=== PATIENT | male | born 1945 | race African-American/Black ===

== ENCOUNTER → 2016-07-24 | Outpatient (CLI) | payer MEDICARE, BC ==
[2014-04-03 11:00] VITALS: BP 148/88
[~2016-07-24] MED LIST: AMLO1CAP12 PO; AMOX1TAB58 PO; ASPI-482 PO; BIMA2.5D OP; DOCU100T11 PO; FLUT16SP2 NS; FLUV80TA PO; GLIP10TA13 PO; HYDR-923 PO; IBUP-1007 PO; IOHEXOL 300 MG/ML 100ML VIAL. IV ONE; METF10002 PO; OMEP40CA5 PO; PREG50CA PO; SILD100T PO; SILO8CAP PO; TRAM50TA PO; [UNRECOGNIZED DRUG - CODE] PO
--- NOTE | 2016-07-24 11:09 | KCIC ---
PQRS STATEMENT One or more of the following individualized dose reduction techniques were utilized for this study: 1.Automated exposure control 2.Adjustment of the mA and/or kV according to patient size 3.Use of iterative reconstruction technique CT NECK WITH CONTRAST HISTORY:Reason For Study Reason: NODULAR SCLEROSIS HODGKINS LYMPHOMA / Spl. Instructions: 95cc Omni 300 / History: TECHNIQUE: 2.5 mm contiguous axial images were obtained from the region of the paranasal sinuses through the thoracic inlet after the administration of iodinated intravenous contrast material. Additional sagittal and coronal reconstructions were performed. FINDINGS: Visualized brain parenchyma is within normal limits and no regions of abnormal parenchymal enhancement are seen. Visualized paranasal sinuses and mastoid air cells are clear. The nasopharynx, oropharynx, and base of tongue are unremarkable. The oral cavity is somewhat obscured by dental streak artifact. The visualized salivary glands are unremarkable. Specifically, no parotid lesions are seen. Rod Buster Helper spaces are within normal limits. The parapharyngeal fat is preserved. There is no abnormality identified within the retropharyngeal or paravertebral soft tissues. Glottic and subglottic structures are within normal limits. The airway is patent throughout. The thyroid gland has a normal anatomic configuration. Visualized vascular structures are unremarkable. There is no cervical adenopathy. Normal appearing cervical lymph nodes are seen. No drainable fluid collections are seen. No inflammatory changes of the soft tissues are identified. No bony lesions are seen. There is multilevel cervical spondylosis. Visualized lung apices are clear. IMPRESSION: - Negative for cervical adenopathy. Soft tissue neck exam is within normal limits apart from degenerative changes of the cervical spine. Electronically signed by: Leandro Patel (Jul 24, 2016 11:08:55)
== END | disposition home or self-care (01) ==
LOC: KCIC CT 10:07
DX: C81.11 Nodular sclerosis Hodgkin lymphoma, lymph nodes of head, face, and neck (principal); M47.892 Other spondylosis, cervical region
CPT/HCPCS: 70491; Q9967

== ENCOUNTER → 2017-01-27 | Outpatient (CLI) | payer MEDICARE, BC ==
[2014-04-03 11:00] VITALS: BP 148/88
[~2017-01-27] MED LIST changes: -IOHEXOL 300 MG/ML 100ML VIAL. IV ONE; +METF-620 PO; -METF10002 PO
--- NOTE | 2017-01-27 16:27 | RAD ---
Exam performed: One view pelvis and 2 views right hip. Clinical Indication: Patient slipped 2 weeks ago, complaint of back pain and right hip pain Date of Service:01/27/17 Comparison:None available Findings: AP radiograph of the pelvis to include the proximal portion of each femur reveals the osseous structures to be intact and well aligned. The joint spaces are well-preserved. Evidence of fracture or dislocation is not seen. Impression: Negative exam
== END | disposition home or self-care (01) ==
LOC: RAD 14:35
PROVIDERS: ATTEND Internal Medicine
DX: M25.551 Pain in right hip (principal)
CPT/HCPCS: 73502

== ENCOUNTER → 2017-07-05 | Outpatient (CLI) | payer MEDICARE, BC ==
[2017-07-05 09:16] LABS: GFR 80.1
[2017-07-05 09:16] LABS: CREATININE 1.1 mg/dL (0.7-1.3)
[2017-07-05] MEDS: IOHEXOL 240 MG/ML 50ML VIAL. PO ×2 (09:56)
[2017-07-05] MEDS: IOHEXOL 300 MG/ML 100ML VIAL. IV ×2 (09:56)
== END | disposition home or self-care (01) ==
LOC: CT 09:22
DX: C81.10 Nodular sclerosis Hodgkin lymphoma, unspecified site (principal); K43.9 Ventral hernia without obstruction or gangrene; I10 Essential (primary) hypertension; E11.9 Type 2 diabetes mellitus without complications; Z87.891 Personal history of nicotine dependence; Z79.01 Long term (current) use of anticoagulants
CPT/HCPCS: 36415; 70491; 71260; 74177; 82565; Q9966; Q9967

== ENCOUNTER → 2018-07-12 | Outpatient (CLI) | payer MEDICARE, BC ==
[2014-04-03 11:00] VITALS: BP 148/88
[~2018-07-12] MED LIST changes: +IOHEXOL 240 MG/ML 50ML VIAL. PO ONE; +IOHEXOL 300 MG/ML 100ML VIAL. IV ONE; -METF-620 PO; +METF10007 PO; -SILO8CAP PO; +SILO8CAP2 PO
--- NOTE | 2018-07-12 10:51 | RAD ---
Examination: CT NECK CHEST ABD PELVIS W CON History: lymphoma.
iv Omni 300 75 mls and p oomni 240 50 mls
previous Comparison/Correlation: 07/05/2017 CT neck chest abdomen and pelvis with contrast Findings: Axial images of the neck, chest, abdomen, and pelvis were obtained following IV contrast. Sagittal and coronal reformatted images were provided. Oral contrast was administered. Chronic paranasal sinusitis is present. Visualized posterior fossa is unremarkable. Parotid and submandibular glands are unremarkable. Pharynx is symmetric. No enlarged lymph nodes involving the neck. Epiglottis is normal. True and false cords are symmetric. Thyroid gland is normal. Atlantoaxial joint degenerative remodeling is notable. Significant degenerative disc space narrowing is present throughout the cervical spine from C3 to C7. Visualized carotid arteries are unremarkable. Significant calcification is present involving the coronary arteries. Small hiatal hernia is present. No enlarged thoracic lymph nodes. Respiratory motion limits evaluation of the upper lung johnson. No suspicious pulmonary nodule or mass. Previously described right lower lobe superior segment nodule is no longer evident. No infiltrates. Liver, spleen, pancreas, adrenal glands, gallbladder fossa are unremarkable. Kidneys are unremarkable. Supraumbilical ventral hernia is present containing frontal fat and nonstrenuous. Small bowel loops. No bowel obstruction. Diverticulosis of the colon is present without acute inflammation. No enlarged abdominal or pelvic lymph nodes. Appendix is normal. No enlarged abdominal or pelvic lymph nodes. Significant degenerative disc space narrowing from L4 to S1 is noted. Concentric disc bulge at L4-5 is evident. Facet joint degenerative changes of the low lumbar spine are notable. Urinary bladder is unremarkable. Impression: Small hiatal hernia. Diverticulosis. Ventral hernia is present containing nonobstructed small bowel loop and omental fat. No enlarged cervical, thoracic, abdominal, or pelvic lymph nodes. No suspicious new finding. PQRS Compliance Statement: One or more of the following individualized dose reduction techniques were utilized for this examination: 1. Automated exposure control 2. Adjustment of the mA and/or kV according to patient size 3. Use of iterative reconstruction technique Electronically signed by: Mike Tyler MD (07/12/2018 10:47 AM) [id number]
== END | disposition home or self-care (01) ==
LOC: CT 07:33
PROVIDERS: ATTEND Internal Medicine Hematology & Oncology
DX: C81.10 Nodular sclerosis Hodgkin lymphoma, unspecified site (principal); R91.1 Solitary pulmonary nodule; K44.9 Diaphragmatic hernia without obstruction or gangrene; K43.9 Ventral hernia without obstruction or gangrene; K57.30 Diverticulosis of large intestine without perforation or abscess without bleeding; I25.10 Atherosclerotic heart disease of native coronary artery without angina pectoris; J32.4 Chronic pansinusitis; M50.31 Other cervical disc degeneration, high cervical region; M48.02 Spinal stenosis, cervical region; M51.37 Other intervertebral disc degeneration, lumbosacral region; M48.07 Spinal stenosis, lumbosacral region; M47.816 Spondylosis without myelopathy or radiculopathy, lumbar region
CPT/HCPCS: 70491; 71260; 74177; Q9966; Q9967

== ENCOUNTER 2018-07-18 08:17 | Emergency (ER) | payer MEDICARE, BC ==
[~2018-07-18] VITALS: Ht 180.3 cm; Wt 91.6 kg
[~2018-07-18 08:17] MED LIST changes: -AMLO1CAP12 PO; +AMLO1CAP13 PO; -IOHEXOL 240 MG/ML 50ML VIAL. PO ONE; -IOHEXOL 300 MG/ML 100ML VIAL. IV ONE
[2018-07-18 08:26] VITALS: BP 124/75
--- NOTE | 2018-07-18 08:33 | PHYS DOC ---
Past Medical History Past Medical History: Diabetes-Type II, Other Additional Past Medical Histor: STOMACH CANCER, DIABETIC Past Surgical History: Other Additional Past Surgical Histo: LT HAND AMPUTEE FINGERS Alcohol Use: None Drug Use: None Adult General Chief Complaint Chief Complaint: MECHANICAL FALL HPI HPI Patient is a 73 year old with history of diabetes type 2, who presents to the ED today complaining of a constant 7 out of 10 sharp right ventral thigh pain that began a week ago after he slipped on ice and fell. Patient denies any loss of consciousness. Denies any numbness or tingling to bilateral lower extremities, denies any loss of bowel bladder function. He states his pain is worse when walking, denies any back pain who states he has been taking Tylenol with minimal relief. Review of Systems Review of Systems Constitutional: Denies fever or chills [] GI: Denies abdominal pain, nausea, vomiting, bloody stools or diarrhea [] : Denies dysuria or hematuria [] Musculoskeletal: Reports right thigh pain. Denies back pain or joint pain [] Integument: Denies rash or skin lesions [] Neurologic: Denies headache, focal weakness or sensory changes [] All other systems were reviewed and found to be within normal limits, except as documented in this note. Current Medications Current Medications Current Medications Medications (Trade) Dose Ordered Sig/Srinivas Start Time Stop Time Status Last Admin Dose Admin Acetaminophen/ Hydrocodone Bitart (Lortab 5/325) 1 tab 1X ONCE 07/18/18 09:00 07/18/18 09:01 DC 07/18/18 09:01 1 TAB Allergies Allergies Allergies Coded Allergies Type Severity Reaction Last Updated Verified No Known Medication Allergies Allergy Unknown 12/26/13 Yes Physical Exam Physical Exam Constitutional: Well developed, well nourished, no acute distress, non-toxic appearance. [] Skin: Warm, dry, no erythema, no rash. [] Back: No tenderness, no CVA tenderness. [] Extremities: Right lower extremity with no obvious deformity. No tenderness on palpation of the right thigh. Full passive range of motion to the right lower extremity. +2 right pedal pulse. Cap refill less than 2 seconds the right lower extremity. Adequate sensation to the right lower extremity. Neurologic: Alert and oriented X 3, normal motor function, normal sensory function, no focal deficits noted. [] Psychologic: Affect normal, judgement normal, mood normal. [] Current Patient Data Vital Signs Vital Signs Date Time Temp Pulse Resp B/P (MAP) Pulse Ox O2 Delivery O2 Flow Rate FiO2 07/18/18 09:01 18 07/18/18 08:26 98.6 80 124/75 (91) 98 Room Air 98.6 EKG EKG [] Radiology/Procedures Radiology/Procedures [] Course & Med Decision Making Course & Med Decision Making Pertinent Labs and Imaging studies reviewed. (See chart for details) This is a 73-year-old male patient presented to the ED today with right thigh pain status post falling one week ago. Right femur and pelvic x-rays interpreted by Dr. Hoffman negative for any acute findings. Patient was discharged with Lidoderm patches. F/u with PCP next week. Dragon Disclaimer Dragon Disclaimer This electronic medical record was generated, in whole or in part, using a voice recognition dictation system. Departure Departure Impression: Primary Impression: Fall from standing Additional Impression: Contusion of thigh, right Disposition: HOME, SELF-CARE Condition: STABLE Referrals: YOVANI GARCIA MD (PCP) Follow-up in 1-2 weeks Patient Instructions: Contusion, [id number], Fall Prevention and Home Safety Additional Instructions: You were evaluated in the emergency room for right thigh pain, ice and elevate the extremity. Apply the Lidoderm patches as ordered. Follow-up with your doctor in 1-2 weeks. Problem Qualifiers Primary Impression: Fall from standing Encounter type: initial encounter Qualified Codes: W19.XXXA - Unspecified fall, initial encounter Additional Impression: Contusion of thigh, right Encounter type: initial encounter Qualified Codes: S70.11XA - Contusion of right thigh, initial encounter SALLY BOONE APRN Jul 18, 2018 08:33
[2018-07-18] MEDS ORDERED: HYDROcodone/APAP 5/325MG 1 TAB TABLET PO ONE (09:00)
--- NOTE | 2018-07-18 09:29 | RAD ---
Examination: Frontal view of the pelvis and 2 views of the right femur HISTORY: History of pain. COMPARISON: 01/27/2017 FINDINGS: The bilateral femoral heads within the acetabula. Mild joint space loss identified in the bilateral hip joints. No acute osseous findings in the right femur. IMPRESSION: 1. Mild degenerative changes right hip joint. Electronically signed by: Nick Zhu MD (07/18/2018 9:26 AM) [facility]
--- NOTE | 2018-07-18 09:29 | RAD ---
Examination: Frontal view of the pelvis and 2 views of the right femur HISTORY: History of pain. COMPARISON: 01/27/2017 FINDINGS: The bilateral femoral heads within the acetabula. Mild joint space loss identified in the bilateral hip joints. No acute osseous findings in the right femur. IMPRESSION: 1. Mild degenerative changes right hip joint. Electronically signed by: Nick Zhu MD (07/18/2018 9:26 AM) [facility]
== END 2018-07-18 09:40 | disposition home or self-care (01) ==
LOC: ER 08:17
DX: S70.11XA Contusion of right thigh, initial encounter (principal); E11.9 Type 2 diabetes mellitus without complications; W00.0XXA Fall on same level due to ice and snow, initial encounter; Y93.89 Activity, other specified; Y92.89 Other specified places as the place of occurrence of the external cause; Y99.8 Other external cause status
CPT/HCPCS: 72170; 73552; 99283

== ENCOUNTER → 2019-01-11 | Outpatient (CLI) | payer MEDICARE, BC ==
[~2019-01-11] MED LIST changes: +CONTRAST GIVEN. MC PRN
[2019-01-11] MEDS: IOHEXOL 300 MG/ML 100ML VIAL. IV ONE (09:57)
[2019-01-11] MEDS: IOHEXOL 240 MG/ML 50ML VIAL. PO ONE (09:57)
--- NOTE | 2019-01-11 11:08 | RAD ---
CT study of the chest and abdomen and pelvis with IV contrast Clinical indications: Hodgkin's lymphoma. Follow-up study. COMPARISON: July 12, 2018. TECHNIQUE: After IV infusion of 75 cc of Omnipaque 300, helical CT scanning of the chest and abdomen and pelvis was performed. GI contrast was administered per mouth. PQRS compliance Statement One or more of the following individualized dose reduction techniques were utilized for this study: 1. Automated exposure control 2. Adjustment of the mA and/or kV according to patient size 3. Use of iterative reconstruction technique CHEST CT: No enlarged thoracic lymphadenopathy is evident. No focal aneurysmal dilatation or dissection of the thoracic aorta is seen. The heart size is normal and no pericardial effusion is seen. Calcified atheromatous disease of the coronary arteries is seen. No pleural effusion or pneumothorax is seen. No lung mass or lung consolidation is seen. The proximal bronchial tree is patent. No lytic process is seen. IMPRESSION: No enlarged thoracic lymphadenopathy. No acute abnormality. ABDOMEN AND PELVIS CT: No hepatic mass is seen. The spleen is not enlarged. No pancreatic mass is seen. The gallbladder is normal and no extrahepatic biliary ductal dilatation is seen. No adrenal mass is evident. Both kidneys are normal without hydronephrosis or hydroureter. Urinary bladder wall is smooth. No focal aneurysmal dilatation of the abdominal aorta is seen. Calcified lymph nodes are again evident within the mesentery on the right side just anterior to the duodenum. This cluster of lymph nodes are unchanged in size and the calcifications may be seen with treated lymphoma. No new abdominal or pelvic lymphadenopathy is evident. The appendix is normal. Small hiatal hernia is seen. Umbilical hernia is seen containing a loop of small bowel. No obstructive bowel pattern is evident. No bowel wall thickening is seen. No free intraperitoneal air or fluid or mesenteric edema is evident. No lytic process is seen. IMPRESSION: Stable calcified cluster of lymph nodes within the mesentery on the right side anterior to the duodenum. Calcifications may be seen with treated lymphoma. Otherwise no new abdominal or pelvic lymphadenopathy is evident. Normal size spleen. No acute abnormality of the abdomen or pelvis. Electronically signed by: Taqueria Gagnon MD (01/11/2019 11:05 AM) [place] [id number]
== END | disposition home or self-care (01) ==
LOC: CT 08:21
PROVIDERS: ATTEND Internal Medicine Hematology & Oncology
DX: C81.10 Nodular sclerosis Hodgkin lymphoma, unspecified site (principal); K44.9 Diaphragmatic hernia without obstruction or gangrene; K42.9 Umbilical hernia without obstruction or gangrene; I25.10 Atherosclerotic heart disease of native coronary artery without angina pectoris; I89.8 Other specified noninfective disorders of lymphatic vessels and lymph nodes
CPT/HCPCS: 71260; 74177; Q9966; Q9967

== ENCOUNTER → 2019-09-22 | Outpatient (CLI) | payer MEDICARE, BC ==
[~2019-09-22] MED LIST changes: -CONTRAST GIVEN. MC PRN; +OMEP40CA45 PO; -OMEP40CA5 PO
--- NOTE | 2019-09-22 13:33 | RAD ---
L-spine 3 views INDICATION: Low back pain. COMPARISON: Chest abdomen pelvis CT of 01/11/2019 TECHNIQUE: AP, lateral and coned-down lateral views of the lumbar spine were obtained. FINDINGS: 5 lumbar type vertebrae in anatomic alignment, unchanged from the previous examination. The bones appear mildly demineralized but no fracture or aggressive appearing osseous lesions are seen. There is disc space narrowing most conspicuous at L4-L5 and L5-S1 similar to prior. There are bulky osteophytes at the endplates of L4-L5 and at L5-S1. Multilevel facet hypertrophic changes also present. These result in mild to moderate bilateral L4-L5 and L5-S1 bony foraminal narrowing. The soft tissues show arterial calcifications and ill-defined calcifications in the right abdomen that correlate with right midabdominal lymph nodes with central calcification is shown on comparison CT. Visualized pelvis and hips are unremarkable. IMPRESSION: Multilevel lumbar spinal degenerative spondylosis, similar to prior with no fracture or aggressive appearing osseous lesions in the lumbar spine. Sacroiliac joints, 3 views. INDICATION: Low back pain. COMPARISON: L-spine x-rays same day and pelvis CT of 01/11/2019. TECHNIQUE: Axial AP pelvis, and AP views of the bilateral sacral iliac joints were obtained. FINDINGS: No sclerosis or erosions along the sacroiliac joints are seen. No fusion, fracture or aggressive appearing osseous lesions are seen. The bilateral hips are unremarkable. The pelvic ring is intact. The soft tissues show scattered arterial calcifications. IMPRESSION: No evidence of sacroiliitis. Electronically signed by: Domenica Esposito MD (09/22/2019 1:30 PM) [id number]
== END | disposition home or self-care (01) ==
LOC: LAB 12:22
PROVIDERS: ATTEND Internal Medicine
DX: M47.816 Spondylosis without myelopathy or radiculopathy, lumbar region (principal); M48.07 Spinal stenosis, lumbosacral region; M25.78 Osteophyte, vertebrae; M89.38 Hypertrophy of bone, other site
CPT/HCPCS: 72100; 72202

== ENCOUNTER → 2019-10-17 | Outpatient (CLI) | payer MEDICARE, BC ==
[~2019-10-17] MED LIST changes: -PREG50CA PO; +PREG50CA91 PO
--- NOTE | 2019-10-17 09:28 | RAD ---
EXAM: MRI lumbar spine without contrast CLINICAL INDICATION: Worsening lower back pain and sacral pain for 9 months. No history of fall. COMPARISON: Lumbar spine radiograph 09/22/2019. TECHNIQUE: Multiplanar multisequence MR images of the lumbar spine without contrast. FINDINGS: There are 5 nonrib-bearing lumbar vertebral bodies. No acute fracture or listhesis. There is straightening of lordosis. There is severe disc height loss and desiccation L5-S1, and to the slightly lesser extent at L4-L5. Mild disc height loss and desiccation at L2-L3 and L3-L4. Mild Modic edematous changes at L2-L3. The conus medullaris terminates at L1-L2. Cauda equina is normal. Partially visualized 1.2 cm T2 hyperintense cystic lesion in the inferior left renal pole, likely a peripelvic cyst. Paraspinal musculature is normal. At L1-L2: No disc herniation or canal or foraminal narrowing. At L2-L3: There is a central/right paracentral disc extrusion extending slightly cranial to the disc space. This measures 0.9 x 0.8 x 1.0 cm (transverse by AP by cc), and causes moderate canal and right lateral recess narrowing. There is mild to moderate bilateral foraminal narrowing. Severe bilateral facet arthrosis with ligamentum flavum thickening. At L3-L4: Small broad-based disc bulge combined with severe facet arthrosis and ligamentum flavum thickening results in severe canal narrowing. There is mild to moderate left foraminal narrowing. At L4-L5: A broad-based disc bulge, posterior endplate proliferation, severe facet arthrosis, and ligamentum flavum thickening result in severe canal narrowing. There is moderate right greater than left foraminal narrowing. The right exiting nerve root is mildly deformed in the foramen by the disc bulge and endplate proliferation. At L5-S1: A posterior disc osteophyte results in mild right greater than left lateral recess narrowing. No central canal narrowing. Mild to moderate bilateral foraminal narrowing. The right exiting nerve root contacts an osteophyte in the far lateral extraforaminal region Moderate facet arthrosis. IMPRESSION: 1. Severe canal narrowing at L3-L4 and L4-L5 related to disc bulges, severe facet arthrosis, and ligamentum flavum thickening. 2. Moderate canal and right lateral recess narrowing at L2-L3 related to a central/right paracentral disc extrusion, severe facet arthrosis, and ligamentum flavum thickening. 3. Moderate right greater than left foraminal narrowing at L4-L5. Mild to moderate foraminal narrowing at L2-L3, L3-L4, and L5-S1. Electronically signed by: Lea Garcia MD (10/17/2019 9:25 AM) [id number]
--- NOTE | 2019-10-17 10:05 | RAD ---
STUDY: MRI pelvis without contrast INDICATION: Worsening lower back and sacral pain for the past 9 months. No known injury. COMPARISON: CT abdomen/pelvis 01/11/2019 TECHNIQUE: Multiplanar MR imaging of the pelvis performed without the use of intravenous contrast. FINDINGS: Bones: Degenerative changes involving the visualized lumbar spine as detailed on the same day dedicated lumbar spine MRI. No acute fracture or aggressive marrow signal abnormality seen to involve the sacrum or rest of the visualized pelvis. A small focus of T2 signal elevation within the posterior right iliac bone, image 9 series 6, exhibits speckled internal T1 signal elevation with corresponding fat suppression of these tiny foci and favored a benign process such as a hemangioma. Bridging osteophytes across the ventral margin of both sacroiliac joints at their cephalad aspect. No periarticular marrow edema or erosive change. The sacral neural foramina are patent. Musculotendinous: Symmetric muscular signal and bulk. The common hamstring origins are unremarkable. Miscellaneous: Well-formed stool within the distal colon with mild distention of the rectum. Partially imaged sigmoid diverticulosis. IMPRESSION: No acute fracture or aggressive marrow signal abnormality to account for the patient's symptoms. Ventral bridging osteophytes across the sacroiliac joints without surrounding degenerative marrow edema or active erosive change. Collectively, no acute abnormality involving the sacrum or rest of the visualized pelvis to account for the patient's symptoms. Electronically signed by: JOLENE HENDRICKS MD (10/17/2019 10:02 AM) [id number]
== END | disposition home or self-care (01) ==
LOC: MRI 07:58
PROVIDERS: ATTEND Physical Medicine & Rehabilitation
DX: M48.07 Spinal stenosis, lumbosacral region (principal); M12.88 Other specific arthropathies, not elsewhere classified, other specified site; M51.26 Other intervertebral disc displacement, lumbar region; M40.46 Postural lordosis, lumbar region; M25.78 Osteophyte, vertebrae; M51.36 Other intervertebral disc degeneration, lumbar region; K57.30 Diverticulosis of large intestine without perforation or abscess without bleeding
CPT/HCPCS: 72148; 72195

== ENCOUNTER → 2021-05-28 | Outpatient (CLI) | payer MEDICARE, BC ==
[~2021-05-28] MED LIST changes: +CYAN200014 PO; +FINA5TAB4 PO; -FLUV80TA PO; +FLUV80TA2 PO; +IOHEXOL 180 MG/ML 10 ML VIAL. ONE; +LATA7.5D OU; +LOSA25TA54 PO; -OMEP40CA45 PO; +OMEP40CA7 PO; +methylPREDNISolone ACETATE 40 MG/ML VIAL. ONE; +methylPREDNISolone ACETATE 80 MG/ML VIAL. ONE
--- NOTE | 2021-05-28 16:09 | PDOC4 ---
Procedure Note: ICD 10 Code: ICD 10 Code: M54.16 M51.36 M 48.06 Procedure Note: Patient was consented for lumbar epidural steroid injection with fluoroscopic guidance. Risks were discussed including but not limited to: Bleeding, infection, possibility of epidural hematoma and subsequent neurological compromise, dural puncture, headaches, spinal cord and/or nerve damage, side effects of steroid medication, and poor results regarding pain control. Patient understands and wished to proceed. Procedure is lumbar epidural steroid injection under local anesthetic using brandon rile prep and drape at the L4-5 level using C-arm fluoroscopic guidance in both AP and lateral views medications injected is 120 mg Depo-Medrol +10mL preservative-free normal saline and 2 mL contrast- condition at discharge is stable patient tolerated procedure well had no complications. MADDY LOPEZ MD May 28, 2021 16:09
--- NOTE | 2021-05-28 16:09 | PDOC1 ---
INITIAL PAIN CONSULT DATE OF SERVICE: DOS: DATE: 05/28/21 TIME: 16:02 CHIEF COMPLAINT: Chief Complaint: Low back and left lower extremity pain HISTORY OF PRESENT ILLNESS: 76-year-old male presents with history of pain low back for about 2 years radiating to the left lower extremity posterior gluteus posterior lateral thigh lateral anterior thigh anteromedial thigh patient reports is getting worse over the past 2 years gradually increasing not the result of any specific injury or accident that he is aware but getting worse with walking standing changing positions better with sitting or laying down patient reports awakening from sleep frequently all night does affect his ability to walk significantly and it is very painful although he still walking without any assistive devices. Amena ortega has had chiropractic treatment as well as exercise which he is currently doing walking on treadmill as well also taking Tylenol which helps decrease the pain but not as lasting for very long. Patient reports pain is primarily at night in the low back rating to the left lower extremity as noted throbbing stabbing sharp and dull aching and cramping in the back with some shooting pain in the leg as well with standing or walking for prolonged periods. Patient did have an MRI scan lumbar spine showing severe canal narrowing L3-4 and L4-5 related to disc bulges moderate canal and right lateral recess narrowing L23 related to a central right paracentral disc extrusion moderate right greater than left foraminal narrowing L4-5 with mild foraminal narrowing L2-3 L3-4 and L5-S1. Patient reports no loss of motor function with significant fatigability of the left leg with standing for prolonged periods. Patient reports his disability rating 0-10 10 being the worst is a seven with recreation one with family home responsibilities and social activity eight with occupation for with section behavior zero with self-care and 10 with life support activities. Patient reports no bowel or bladder incontinence. PAST MEDICAL HISTORY: PMH: Arthritis, hypertension, diabetes gastritis, diverticulitis, hyperlipidemia, Hodgkin's lymphoma currently in remission PREVIOUS SURGERIES: Past Surgical Hx: Hiatal hernia repair CURRENT MEDICATIONS: Current Meds: Active Scripts Medications Dose Route/Sig Max Daily Dose Days Date Category Vitamin B-12 (Cyanocobalamin (Vitamin B-12)) 2,000 Mcg Tablet 2,000 Mcg PO DAILY 05/28/21 Reported Losartan Potassium (Losartan Potassium) 25 Mg Tablet 25 Mg PO DAILY 05/28/21 Reported Latanoprost 0.005% Eye Drop (Latanoprost/Pf) 7.5 Ml Drops 1 Drop OU QHS 05/28/21 Reported Finasteride 5 Mg Tablet 1 Tab PO DAILY 05/28/21 Reported Fibertab (Calcium Polycarbophil) 625 Mg Tablet 625 Mg PO DAILY 05/26/13 Reported Omeprazole 40 Mg Capsule.dr 40 Mg PO DAILY 05/10/13 Reported Tramadol Hcl 50 Mg Tablet 50 Mg PO PRN Q6HRS 05/10/13 Reported Amlodipine-Benazepril 10-20 Mg (Amlodipine Besylate/Benazepril) 1 Each Capsule 1 Each PO DAILY 05/10/13 Reported Glipizide 10 Mg Tablet 5 Mg PO DAILY 05/10/13 Reported Metformin Hcl 1,000 Mg Tablet 1,000 Mg PO BID 05/10/13 Reported ALLERGIES; Allergies: Coded Allergies: No Known Medication Allergies (Verified Allergy, Unknown, 12/26/13) FAMILY HISTORY: Family Hx: No major medical history that he is aware of SOCIAL HISTORY: Social Hx: Patient drinks alcohol about 1 glass of wine a day does not smoke not use any illegal illicit or recreational drugs lives with his spouse lives locally in [facility] REVIEW OF SYSTEMS: ROS: Positive for those items mentioned in history of present illness, all systems are reviewed, otherwise negative ,and are complete full and well-documented on patient's chart. PHYSICAL EXAM: VS: Blood pressure is 145/85 pulse 60 respirations 18 temperature 97.8 F height 5 ft 11 in weight is 199 lbs PE: PHYSICAL EXAMINATION: GENERAL: The patient is awake, alert, oriented, appropriate, very pleasant in demeanor HEENT: Shows normocephalic, atraumatic. Extraocular movements are intact and symmetrical. Oral cavity: Mucous membranes moist and pink. NECK: Shows anterior throat supple without palpable lymphadenopathy noted. Swallow reflex symmetrical. CHEST: Shows normal on inspection. Breath sounds are clear bilaterally, distant but no rales rhonchi wheezes auscultated. HEART: Shows S1, S2 clear. No murmurs auscultated. ABDOMEN: Soft, nontender, nondistended. No palpable organomegaly is noted. BACK: Shows spine grossly in the midline. Normal-appearing cervical lordotic curvature. There is mildly increased thoracic kyphosis, some flattening of the lumbar lordotic curvature. Lumbar paraspinous muscles show symmetrical on inspection, on palpation shows some moderate tenderness diffusely throughout the upper, middle and lower distribution of the paraspinous muscles bilaterally and also into the lower thoracic paraspinous musculature, firm and tender, without specific trigger points, without radiation of pain. The patient has good rotational motion of the lumbar spine, both laterally as well as extension and flexion without significant difficulty. No tenderness over the spinous proc esses, sacrum or sacroiliac regions. EXTREMITIES: Lower extremities show deep tendon reflexes 1+ in the patellar and tendo calcaneus tendons. Motor exam is five on a scale of 5 with right dorsiflexion, extension, quadriceps and hamstring flexion and four/5 on the left. Peripheral pulses are 1+ posterior tibial. No peripheral edema is noted bilaterally. Lower extremities are warm and dry to touch, equal in color and appearance. SKIN: Shows warm and dry, good turgor. No edema. No sores, rashes or bruising throughout. IMPRESSION: Impression: 76-year-old male with approximate 2-year history increasing pain low back left lower extremity radicular fashion MRI scan lumbar spine as noted History of Hodgkin's lymphoma Type 2 diabetes Arthritis Gastritis Hyperlipidemia Plan: Options were discussed the patient could exert medical management physical therapy intervention techniques. Patient elects interventional techniques. We discussed a lumbar epidural steroid issues description as well as anatomical models described the procedure. Risks were discussed including but not limited to: Bleeding, infection, possibility of epidural hematoma and subsequent neurological compromise, dural puncture, headaches, spinal cord and/or nerve da mage, side effects of steroid medication, and poor results regarding pain control. Patient understands and wished to proceed. Patient will return to the clinic in approximately 2 weeks for follow-up, was counseled as return appointment, activity, and side effects beware of. Procedure is lumbar epidural steroid injection under local anesthetic using sterile prep and drape at the L4-5 level using C-arm fluoroscopic guidance in both AP and lateral views medications injected is 120 mg Depo-Medrol +10mL prese rvative-free normal saline and 2 mL contrast- condition at discharge is stable patient tolerated procedure well had no complications. MADDY LOPEZ MD May 28, 2021 16:09
== END | disposition home or self-care (01) ==
LOC: PNCL 09:40
PROVIDERS: ATTEND Anesthesiology
DX: M54.50 Low back pain, unspecified (principal); M79.605 Pain in left leg; M51.16 Intervertebral disc disorders with radiculopathy, lumbar region; M48.061 Spinal stenosis, lumbar region without neurogenic claudication; I10 Essential (primary) hypertension; E78.00 Pure hypercholesterolemia, unspecified; K21.9 Gastro-esophageal reflux disease without esophagitis; G47.30 Sleep apnea, unspecified; E11.9 Type 2 diabetes mellitus without complications; F41.9 Anxiety disorder, unspecified; F17.210 Nicotine dependence, cigarettes, uncomplicated; Z79.84 Long term (current) use of oral hypoglycemic drugs; Z79.899 Other long term (current) drug therapy; Z98.890 Other specified postprocedural states
CPT/HCPCS: 62323; J1030; J1040; Q9965

== ENCOUNTER → 2021-08-07 | Outpatient (CLI) | payer MEDICARE, BC ==
[~2021-08-07] MED LIST changes: +DEXAMETHASONE PRES.FREE 10 MG/ML VIAL. ONE; -methylPREDNISolone ACETATE 40 MG/ML VIAL. ONE; -methylPREDNISolone ACETATE 80 MG/ML VIAL. ONE
--- NOTE | 2021-08-07 15:13 | PDOC ---
Progress Note - Pain Clinic Date of Service: DOS: DATE: 08/07/21 TIME: 15:09 Diagnosis: Dx: Lumbar radiculopathy with lumbar degenerative disease and lumbar spinal stenosis History or Present Illness: HPI: 76-year-old male returns for follow-up last seen May 28, 2021 patient did very well after lumbar epidural steroid injection with about 80% improvement for 3 months patient reports the pain returning now as he has been helping his who had a recent knee replacement and she is having some difficulty with mobility and he has been in having to lift her and help her with her mobility which is causing increased pain is back patient reports originally pain was only on the right side but now is on both sides in the low back and into the lower extremities posterior gluteus posterior lateral thigh lateral anterior thighs anterior medial thighs again worse on the right but now present on the left as well which is new for him he did not have any pain on the left side on his last visit. Patient reports it is a 10 on scale 10 is worst over the past week 8 on average 7 its least and is an 8 today patient grabs it off and on in intensity worse with walking standing changing positions better with sitting or laying down but wakes him from sleep at least once a night patient reports aching and dull in the back dull tight and shooting in the leg burning and cramping in the back as well as radiating and can be severe and constant with standing and walking. Patient reports no bowel or bladder incontinence no loss of motor function but significant fatigability of both lower extremities over the past few weeks. Physical Exam: VS: Blood pressure is 143/86 pulse 62 respirations are 18 temperature 98.4 F height 5 foot 11 inches weight 240 pounds. PE: PHYSICAL EXAMINATION: GENERAL: The patient is awake, alert, oriented, appropriate, very pleasant in demeanor HEENT: Shows normocephalic, atraumatic. Extraocular movements are intact and symmetrical. Oral cavity: Mucous membranes moist and pink. NECK: Shows anterior throat supple without palpable lymphadenopathy noted. Swallow reflex symmetrical. CHEST: Shows normal on inspection. Breath sounds are clear bilaterally, distant but no rales rhonchi or wheezes auscultated. HEART: Shows S1, S2 clear. No murmurs auscultated. ABDOMEN: Soft, nontender, nondistended. No palpable organomegaly is noted. BACK: Shows spine grossly in the midline. Normal-appearing cervical lordotic curvature. There is mildly increased thoracic kyphosis, some flattening of the lumbar lordotic curvature. Lumbar paraspinous muscles show symmetrical on inspection, on palpation shows some moderate tenderness diffusely throughout the upper, middle and lower distribution of the paraspinous muscles without specific trigger points, without radiation of pain. The patient has good rotational motion of the lumbar spine, both laterally as well as extension and flexion without significant difficulty. No tenderness over the spinous processes, sacrum or sacroiliac regions. EXTREMITIES: Lower extremities show deep tendon reflexes 1+ in the patellar and tendo calcaneus tendons. Motor exam is 4 on a scale of 5 with right dorsiflexion, extension, quadriceps and hamstring flexion and 4/5 on the left. Peripheral pulses are 1+ posterior tibial. No peripheral edema is noted bilaterally. Lower extremities are warm and dry to touch, equal in color and appearance. SKIN: Shows warm and dry, good turgor. No edema. No sores, rashes or bruising throughout. Procedure: Procedure: Options were discussed with the patient. Patient's chart reviewed his current medication regimen updated current review of systems updated today as well. We will proceed with a lumbar epidural steroid injection today with fluoroscopic guidance. Risks were discussed including but not limited to: Bleeding, infection, possibility of epidural hematoma and subsequent neurological compromise, dural puncture, headaches, spinal cord and/or nerve damage, side effects of steroid medication, and poor results regarding pain control. Patient understands and wished to proceed. Patient will return to clinic in approximate 2 weeks for follow-up, was counseled as to return appointment, active level, and side effect to be aware of. Medication Injected: Med Injected: Procedure is lumbar epidural steroid injection under local anesthetic using s terile prep and drape at the L4-5 level using C-arm fluoroscopic guidance in both AP and lateral views medications injected is 20 mg dexamethasone +10mL preservative-free normal saline and 2 mL contrast- condition at discharge is stable patient tolerated procedure well had no complications. Condition at Discharge: Condition at Discharge: Condition at discharge stable, paced tolerated procedure well and had no complications. MADDY LOPEZ MD Aug 07, 2021 15:13
--- NOTE | 2021-08-07 15:13 | PDOC4 ---
Procedure Note: ICD 10 Code: ICD 10 Code: M54.16 M51.36 M 48.06 Procedure Note: Patient was consented for lumbar epidural steroid injection with fluoroscopic guidance. Risks were discussed including but not limited to: Bleeding, infection, possibility of epidural hematoma and subsequent neurological compromise, dural puncture, headaches, spinal cord and/or nerve damage, side effects of steroid medication, and poor results regarding pain control. Patient understands and wished to proceed. Procedure is lumbar epidural steroid injection under local anesthetic using brandon rile prep and drape at the L4-5 level using C-arm fluoroscopic guidance in both AP and lateral views medications injected is 20 mg dexamethasone +10mL preservative-free normal saline and 2 mL contrast- condition at discharge is stable patient tolerated procedure well had no complications. MADDY LOPEZ MD Aug 07, 2021 15:13
== END | disposition home or self-care (01) ==
LOC: PNCL 14:18
PROVIDERS: ATTEND Anesthesiology
DX: M51.16 Intervertebral disc disorders with radiculopathy, lumbar region (principal); M48.061 Spinal stenosis, lumbar region without neurogenic claudication; I10 Essential (primary) hypertension; E78.00 Pure hypercholesterolemia, unspecified; G47.30 Sleep apnea, unspecified; K21.9 Gastro-esophageal reflux disease without esophagitis; M19.90 Unspecified osteoarthritis, unspecified site; E11.9 Type 2 diabetes mellitus without complications; F41.9 Anxiety disorder, unspecified; F17.210 Nicotine dependence, cigarettes, uncomplicated; Z79.84 Long term (current) use of oral hypoglycemic drugs; Z79.899 Other long term (current) drug therapy; Z98.890 Other specified postprocedural states
CPT/HCPCS: 62323; J1100; Q9965

== ENCOUNTER → 2021-09-03 | Outpatient (CLI) | payer MEDICARE, BC ==
--- NOTE | 2021-09-03 11:25 | PDOC ---
Progress Note - Pain Clinic Date of Service: DOS: DATE: 09/03/21 TIME: Diagnosis: Dx: Lumbar radiculopathy lumbar degenerative disease and lumbar spinal stenosis History or Present Illness: HPI: 36-year-old male returns for follow-up status post lumbar epidural steroid injection last seen in August 07, 2021 patient did very well about 40% improvement overall pain in the low back and the right lower extremity patient reports is worse with walking standing specially in the morning he notices the pain at its worst once he gets going and up and around during the day it is a little bit better but still significant in the low back and right lower ext remity posterior gluteus posterior lateral thigh lateral anterior thigh occasionally into the calf as well patient reports an 8 on scale 10 is worst 8 on average 6 at its least and is a 7 today patient reports wakes him sleep about once every 4 hours on average but some nights he sleeps through the night. Again patient reports pain worse in the morning and in the low back and the right leg. Patient reports that sharp and aching can be dull and shooting in the leg as well as dull and aching in the back and stabbing in the back as well. Patient reports no bowel or bladder incontinence no loss of motor function but significant fatigability of the right lower extremity. Physical Exam: VS: Blood pressure is 160/100 pulse 65 respirations 18 temperature 98.6 F height is 511 inches weight is 203 pounds. PE: PHYSICAL EXAMINATION: GENERAL: The patient is awake, alert, oriented, appropriate, very pleasant in [facility], patient [place] by his . HEENT: Shows normocephalic, atraumatic. Extraocular movements are intact and symmetrical. NECK: Shows anterior throat supple without palpable lymphadenopathy noted. Swallow reflex symmetrical. CHEST: Shows normal on inspection. Breath sounds are clear bilaterally. HEART: Shows S1, S2 clear. No murmurs auscultated. ABDOMEN: Soft, nontender, nondistended. No palpable organomegaly is noted. BACK: Shows spine grossly in the midline. Normal-appearing cervical lordotic curvature. There is mildly increased thoracic kyphosis, some flattening of the lumbar lordotic curvature. Lumbar paraspinous muscles show symmetrical on inspection, on palpation shows some moderate tenderness diffusely throughout the upper, middle and lower distribution of the paraspinous muscles without specific trigger points, without radiation of pain. The patient has good rotational motion of the lumbar spine, both laterally as well as extension and flexion without significant difficulty. EXTREMITIES: Lower extremities show deep tendon reflexes 1+ in the patellar and tendo calcaneus tendons. Motor exam is 4 on a scale of 5 with right dorsiflexion, extension, quadriceps and hamstring flexion and 4/5 on the left. Peripheral pulses are 1+ posterior tibial. No peripheral edema is noted bilaterally. Lower extremities are warm and dry to touch, equal in color and appearance. SKIN: Shows warm and dry, good turgor. No edema. No sores, rashes or bruising throughout. Procedure: Procedure: Options were discussed with the patient. Patient's old chart was reviewed as his current medication regimen updated current review of systems updated today as well. We will proceed with a lumbar epidural steroid injection today with fluoroscopic guidance. Risks were discussed including but not limited to: Bleeding, infection, possibility of epidural hematoma and subsequent neurological compromise, dural puncture, headaches, spinal cord and/or nerve damage, side effects of steroid medication, and poor results regarding pain control. Patient understands and wished to proceed. Also, discussing patient's arthritic condition we discussed options and will prescribe new medication of meloxicam 15 mg once daily. Patient given instructions as well as side effects beware with the new prescription medication. Patient will follow up in approximately 2 weeks, was counseled as to return appointment, activity level, and side effect to be aware of. Medication Injected: Med Injected: Procedure is lumbar epidural steroid injection under local anesthetic using sterile prep and drape at the L4-5 level using C-arm fluoroscopic guidance in both AP and lateral views medications injected is 20 mg dexamethasone +10mL preservative-free normal saline and 2 mL contrast- condition at discharge is stable patient tolerated procedure well had no complications. Condition at Discharge: Condition at Discharge: Condition at discharge stable, paced tolerated procedure well and had no complications. MADDY LOPEZ MD Sep 03, 2021 11:25
--- NOTE | 2021-09-03 11:26 | PDOC4 ---
Procedure Note: ICD 10 Code: ICD 10 Code: M54.16 M51.36 M4 8.06 Procedure Note: Patient is consented for lumbar epidural steroid injection with fluoroscopic guidance. Risks were discussed including but not limited to: Bleeding, infection, possibility of epidural hematoma and subsequent neurological compromise, dural puncture, headaches, spinal cord and/or nerve damage, side effects of steroid medication, and poor results regarding pain control. Patient understands and wished to proceed. Procedure is lumbar epidural steroid injection under local anesthetic using ster ile prep and drape at the L4-5 level using C-arm fluoroscopic guidance in both AP and lateral views medications injected is 20 mg dexamethasone +10mL preservative-free normal saline and 2 mL contrast- condition at discharge is stable patient tolerated procedure well had no complications. MADDY LOPEZ MD Sep 03, 2021 11:26
== END | disposition home or self-care (01) ==
LOC: PNCL 10:03
PROVIDERS: ATTEND Anesthesiology
DX: M51.16 Intervertebral disc disorders with radiculopathy, lumbar region (principal); M48.061 Spinal stenosis, lumbar region without neurogenic claudication; I10 Essential (primary) hypertension; E78.00 Pure hypercholesterolemia, unspecified; E11.9 Type 2 diabetes mellitus without complications; G47.30 Sleep apnea, unspecified; F41.9 Anxiety disorder, unspecified; K21.9 Gastro-esophageal reflux disease without esophagitis; F17.210 Nicotine dependence, cigarettes, uncomplicated; Z79.84 Long term (current) use of oral hypoglycemic drugs; Z79.899 Other long term (current) drug therapy; Z98.890 Other specified postprocedural states
CPT/HCPCS: 62323; J1100; Q9965